=== PATIENT | male | born 1980 | race Caucasian/White ===

== ENCOUNTER → 2017-07-09 | Outpatient (CLI) | payer MEDICAID | LOC: RAD 13:37 | DX: N50.89 Other specified disorders of the male genital organs (principal) ==

== ENCOUNTER → 2022-09-11 | Outpatient (CLI) | payer MEDICAID ==
[2022-09-11 10:45] LABS: BASO # 0.02 K/mm3 (0.02-0.10); EOS # 0.14 K/mm3 (0.04-0.40); EOS % 1.8 % (0.0-4.0); HEMATOCRIT 46.5 % (42.0-52.0); HEMOGLOBIN 15.3 g/dL (13.5-18.0); LYMPH# 1.66 K/mm3 (1.50-4.00); MEAN CELL VOLUME 99 fl (78-100); MEAN CORPUSCULAR HEMOGLOBIN 33 pg (27-31); MEAN CORPUSCULAR HGB CONC 33 g/dL (33-37); MEAN PLATELET VOLUME 12.2 fl (7.4-10.4); MONO # 1.03 K/mm3 (0.20-0.80); NEU # 4.83 K/mm3 (1.40-6.50); PLATELET COUNT 165 K/mm3 (130-400); RED BLOOD COUNT 4.69 M/mm3 (4.20-5.60); RED CELL DISTRIBUTION WIDTH 14.6 % (11.5-14.5); WHITE BLOOD COUNT 7.7 K/mm3 (4.8-10.8)
[2022-09-11 10:59] LABS: ALBUMIN 4.2 g/dL (3.5-5.0); POTASSIUM 3.9 mmol/L (3.5-5.1)
[2022-09-11 11:00] LABS: CALCIUM 9.3 mg/dL (8.3-10.5)
[2022-09-11 11:02] LABS: TOTAL PROTEIN 8.7 g/dL (6.4-8.3)
[2022-09-11 11:04] LABS: TOTAL BILIRUBIN 0.5 mg/dL (0.2-1.2)
[2022-09-11 12:01] LABS: ERYTHROCYTE SEDIMENTATION RATE 23 mm/hr (0-15)
[2022-09-11 21:46] LABS: FOLATE (FOLIC ACID) 19.9 ng/mL (2.0-20.0)
== END ==
LOC: LAB 10:22
PROVIDERS: Internal Medicine
DX: Z00.01 Encounter for general adult medical examination with abnormal findings (principal); Z23 Encounter for immunization; I65.29 Occlusion and stenosis of unspecified carotid artery; I34.0 Nonrheumatic mitral (valve) insufficiency; Q23.1 Congenital insufficiency of aortic valve; F84.0 Autistic disorder; N39.45 Continuous leakage; K51.30 Ulcerative (chronic) rectosigmoiditis without complications; D50.9 Iron deficiency anemia, unspecified; E78.2 Mixed hyperlipidemia; K90.9 Intestinal malabsorption, unspecified; F91.9 Conduct disorder, unspecified; R79.89 Other specified abnormal findings of blood chemistry

== ENCOUNTER → 2024-12-31 | Outpatient (CLI) | payer MEDICAID ==
[2024-12-31 10:20] LABS: BASO # 0.01 K/mm3 (0.02-0.10); EOS # 0.05 K/mm3 (0.04-0.40); EOS % 0.9 % (0.0-4.0); HEMATOCRIT 46.5 % (42.0-52.0); HEMOGLOBIN 15.8 g/dL (13.5-18.0); LYMPH# 0.99 K/mm3 (1.50-4.00); MEAN CELL VOLUME 99 fl (78-100); MEAN CORPUSCULAR HEMOGLOBIN 34 pg (27-31); MEAN CORPUSCULAR HGB CONC 34 g/dL (33-37); MEAN PLATELET VOLUME 12.6 fl (7.4-10.4); MONO # 0.37 K/mm3 (0.20-0.80); NEU # 4.33 K/mm3 (1.40-6.50); PLATELET COUNT 142 K/mm3 (130-400); RED CELL DISTRIBUTION WIDTH 13.9 % (11.5-14.5); WHITE BLOOD COUNT 5.8 K/mm3 (4.8-10.8)
[2024-12-31 10:32] LABS: ALBUMIN 4.4 g/dL (3.5-5.0)
[2024-12-31 10:33] LABS: CALCIUM 9.7 mg/dL (8.3-10.5)
[2024-12-31 10:35] LABS: TOTAL PROTEIN 8.9 g/dL (6.4-8.3)
[2024-12-31 10:37] LABS: TOTAL BILIRUBIN 0.6 mg/dL (0.2-1.2)
[2024-12-31 10:42] LABS: MAGNESIUM 1.92 mg/dL (1.60-2.60)
== END ==
LOC: LAB 09:56
PROVIDERS: Internal Medicine
DX: K51.30 Ulcerative (chronic) rectosigmoiditis without complications (principal); D50.9 Iron deficiency anemia, unspecified; E78.2 Mixed hyperlipidemia; K90.9 Intestinal malabsorption, unspecified